=== PATIENT | female | born 1990 | race African-American/Black ===

== ENCOUNTER 2024-07-05 19:54 | Emergency (ER) | payer MEDICAID ==
[~2024-07-05] VITALS: Ht 154.9 cm; Wt 77.0 kg
[2024-07-05 20:15] VITALS: O2SAT 100
[2024-07-05] MEDS ORDERED: AMOX1TAB16 MT (20:29)
[2024-07-05 22:00] VITALS: BP 106/58; PULSE 79; RESP 20; TEMP 36.72516; O2SAT 98
[2024-07-05] MEDS: TETANUS, DIPHTHERIA, PERTUSSIS VAC/PF 0.5ML (>10YR OLD) IM ONE (22:04)
== END 2024-07-05 22:03 | disposition home or self-care (01) ==
LOC: ER 19:54
DX: S51.831A Puncture wound without foreign body of right forearm, initial encounter (principal); W54.0XXA Bitten by dog, initial encounter; Y93.89 Activity, other specified; Y92.89 Other specified places as the place of occurrence of the external cause; Y99.8 Other external cause status
CPT/HCPCS: 90471; 90715; 99283